=== PATIENT | male | born 1970 | race Caucasian/White ===

== ENCOUNTER 2017-06-18 18:14 | Emergency (ER) | payer MEDICAID ==
[~2017-06-18] VITALS: Ht 182.9 cm; Wt 78.9 kg
[2017-06-18 18:32] VITALS: BP 136/88; Ht 182.9 cm; Wt 78.9 kg
== END 2017-06-18 19:56 | disposition left against medical advice (07) ==
LOC: ED 18:14
DX: Z53.21 Procedure and treatment not carried out due to patient leaving prior to being seen by health care provider (principal)

== ENCOUNTER 2017-06-19 12:10 | Emergency (ER) | payer MEDICAID ==
[~2017-06-19] VITALS: Ht 182.9 cm; Wt 77.1 kg
[2017-06-19 12:20] VITALS: BP 140/66; Ht 182.9 cm; Wt 77.1 kg
== END 2017-06-19 14:38 | disposition home or self-care (01) ==
LOC: ED 12:10
DX: L03.115 Cellulitis of right lower limb (principal)
CPT/HCPCS: J7030; J7050

== ENCOUNTER 2017-09-02 11:50 | Emergency (ER) | payer OTHER ==
[~2017-09-02] VITALS: Ht 182.9 cm; Wt 81.2 kg
[2017-09-02 12:31] VITALS: BP 141/84
== END 2017-09-02 14:14 | disposition home or self-care (01) ==
LOC: ED 11:50
DX: L29.9 Pruritus, unspecified (principal)

== ENCOUNTER 2018-03-19 15:27 | Emergency (ER) | payer MEDICAID ==
[2018-03-19 15:31] VITALS: BP 131/86; Ht 182.9 cm
[2018-03-19 17:43] LABS: CALCIUM 8.6 mg/dL (8.5-10.1); CARBON DIOXIDE 28.2 mmol/L (21-32); CHLORIDE SERUM 100 mmol/L (98-107); CREATININE SERUM 0.8 mg/dL (0.7-1.3); GFR1 > 60 mL/min; GLUCOSE SERUM 98 mg/dL (74-106); POTASSIUM SERUM 3.6 mmol/L (3.5-5.1); SODIUM SERUM 137 mmol/L (136-145)
[2018-03-19 18:14] LABS: BASOPHIL % 0.4 % (0-2); PLATELET COUNT 202 x10^3mcL (130-400); RED CELL DISTRIBUTION WIDTH 13.6 % (11.5-14.5)
== END 2018-03-19 19:05 | disposition home or self-care (01) ==
LOC: ED 15:27
PROVIDERS: Emergency Medicine
DX: S60.221A Contusion of right hand, initial encounter (principal); W22.8XXA Striking against or struck by other objects, initial encounter; Y93.89 Activity, other specified; Y92.89 Other specified places as the place of occurrence of the external cause; Y99.8 Other external cause status
CPT/HCPCS: 36415; J1885